=== PATIENT | female | born 1955 | race Asian ===

== ENCOUNTER 2019-05-18 06:50 | Day surgery (SDC) | payer OTHER ==
[~2019-05-18] VITALS: Ht 165.1 cm; Wt 56.2 kg
[2019-05-18 07:29] VITALS: BP 122/73
[2019-05-18 10:42] VITALS: BP 119/68
== END 2019-05-18 10:15 | disposition home or self-care (01) ==
LOC: DS 06:50 → OR 08:00 → GI 08:00 → DS 10:15
DX: K63.89 Other specified diseases of intestine (principal); K59.09 Other constipation; R10.9 Unspecified abdominal pain; M19.90 Unspecified osteoarthritis, unspecified site; Z90.49 Acquired absence of other specified parts of digestive tract; Z79.899 Other long term (current) drug therapy; Z80.0 Family history of malignant neoplasm of digestive organs
CPT/HCPCS: 45378; J1200; J1610; J2250; J2310; J3010; J3490